=== PATIENT | male | born 2000 | race African-American/Black ===

== ENCOUNTER 2023-05-29 07:13 | Emergency (ER) | payer OTHER ==
[~2023-05-29] VITALS: Ht 175.3 cm; Wt 74.0 kg
[2023-05-29] MEDS ORDERED: ONDANSETRON 4MG ORAL DISINTEGRATING TAB PO ONE (08:10)
[2023-05-29] MEDS ORDERED: ONDA4TAB6 PO (09:30)
[2023-05-29 09:39] VITALS: BP 130/88; TEMP 98.1; O2SAT 99
== END 2023-05-29 09:44 | disposition home or self-care (01) ==
LOC: M ED 07:13
DX: A05.9 Bacterial foodborne intoxication, unspecified (principal); Z79.899 Other long term (current) drug therapy

== ENCOUNTER 2023-08-28 13:15 | Emergency (ER) | payer OTHER ==
[~2023-08-28] VITALS: Ht 175.3 cm; Wt 75.8 kg
[~2023-08-28 13:15] MED LIST: ONDA4TAB6 PO
[2023-08-28 13:16] VITALS: BP 136/71; TEMP 99; O2SAT 97
[2023-08-28] MEDS ORDERED: DICL100G10 (13:41)
[2023-08-28] MEDS ORDERED: CYCL-707 (13:41)
[2023-08-28] MEDS ORDERED: VITA1CAP25 (13:41)
[2023-08-28] MEDS ORDERED: LIDO1PAD (13:41)
== END 2023-08-28 13:48 | disposition left against medical advice (07) ==
LOC: M ED 13:15
DX: Z53.21 Procedure and treatment not carried out due to patient leaving prior to being seen by health care provider (principal)

== ENCOUNTER → 2023-10-17 | Outpatient (CLI) | payer OTHER ==
[~2023-10-17] MED LIST changes: +CYCL-707; +DICL100G10; +LIDO1PAD; +VITA1CAP25
[2023-10-17 11:17] LABS: PLATELET COUNT, AUTOMATED 232 10^3/uL (150-450)
[2023-10-17 11:31] LABS: INR 1.23; PROTHROMBIN TIME 15.1 SECONDS (12.5-14.5)
[2023-10-17 11:32] LABS: PARTIAL THROMBOPLASTIN TIME 34.1 SECONDS (24.8-34.2)
== END ==
LOC: M LAB 10:28
PROVIDERS: ATTEND Orthopaedic Surgery
DX: Z01.818 Encounter for other preprocedural examination (principal)